=== PATIENT | male | born 1980 | race American Indian/Alaskan Native ===

== ENCOUNTER 2021-02-03 10:49 | Day surgery (SDC) | payer OTHER ==
[2021-02-03] MEDS ORDERED: fentaNYL 100 MCG/2 ML INJ IV ONE (12:11)
[2021-02-03] MEDS ORDERED: SODIUM CHLORIDE 0.9% 1000 ML 1,000 ML ONE (12:11)
[2021-02-03] MEDS ORDERED: ONDANSETRON 4 MG/2 ML INJ IV PRN (12:11)
[2021-02-03] MEDS ORDERED: HYDROmorphone 1 MG/1 ML INJ IV PRN (12:11)
[2021-02-03] MEDS ORDERED: PROTAMINE SULFATE 50 MG/5 ML INJ ONE (12:12)
[2021-02-03] MEDS ORDERED: SODIUM CHLORIDE 0.9% 250ML 250 ML ONE (12:12)
[2021-02-03] MEDS ORDERED: HEPARIN 10,000 UNITS/10 ML VIAL ONE (12:12)
[2021-02-03] MEDS ORDERED: THROMBIN (RECOMBINANT) 5,000 UNIT VIAL TP ONE (12:13)
[2021-02-03] MEDS ORDERED: SODIUM CHLORIDE 0.9% 1000 ML 1,000 ML IV SCH (12:15)
--- NOTE | 2021-02-03 12:22 | Anesthesia Day of Surgery ---
Anesthesia Day of Surgery - Day of Surgery Patient Examined: Yes Patient H&P Reviewed: Yes Patient is NPO: Yes
--- NOTE | 2021-02-03 12:23 | Anesthesia Consultation ---
Anesthesia Consult and Med Hx Date of service: 02/03/21 - Airway Anesthetic Teeth Evaluation: Chipped ROM Head & Neck: Adequate Mental/Hyoid Distance: Adequate Mallampati Class: Class II Intubation Access Assessment: Good - Pre-Operative Health Status ASA Pre-Surgery Classification: ASA3 Proposed Anesthetic Plan: General - Pulmonary Hx Smoking: Yes (FORMER SMOKER) Hx Pneumonia: Yes (2008) - Cardiovascular System Hx Hypertension: Yes - Central Nervous System Hx Psychiatric Problems: No - Endocrine Hx Renal Disease: Yes (From uncontrolled HTN) Hx End Stage Renal Disease: Yes (Last HD yesterday) - Hematic Hx Sickle Cell Disease: No - Other Systems Hx Alcohol Use: No Hx Substance Use: No Hx Cancer: No Hx Obesity: No
[2021-02-03 12:27] LABS: Hematocrit 39.1 % (35.5-45.6); Hemoglobin 12.3 gm/dl (11.8-15.2); Mean Corpuscular HGB Conc 31 % (32-34); Mean Corpuscular Volume 92 fl (84-94); Platelet Count 281 K/mm3 (140-440); Red Blood Count 4.23 M/mm3 (3.65-5.03); Red Cell Distribution Width 16.7 % (13.2-15.2)
[2021-02-03 12:37] LABS: Calcium 9.9 mg/dL (8.4-10.2)
[2021-02-03] MEDS ORDERED: MIDAZOLAM 2 MG/2 ML INJ IV NR (13:00)
[2021-02-03] MEDS ORDERED: LIDOCAINE MPF (2%) 20 MG/1 ML VIAL 5 ML ONE (13:03)
[2021-02-03] MEDS ORDERED: propofoL 200 MG/20 ML VIAL IV ONE (13:03)
[2021-02-03] MEDS ORDERED: fentaNYL 100 MCG/2 ML INJ ONE ×2 (13:03→14:40)
[2021-02-03] MEDS ORDERED: dexAMETHasone 20 MG/5 ML VIAL ONE (13:51)
[2021-02-03] MEDS ORDERED: ONDANSETRON 4 MG/2 ML INJ ONE ×2 (13:51→14:00)
[2021-02-03] MEDS ORDERED: SODIUM CHLORIDE 0.9% IRR 1,000 ML BOTTLE IR ONE (14:22)
[2021-02-03] MEDS ORDERED: HEPARIN IR ONE (14:22)
[2021-02-03] MEDS ORDERED: SODIUM CHLORIDE 0.9% IR ONE (14:22)
--- NOTE | 2021-02-03 15:38 | Post Operative Note ---
Date of procedure: 02/03/21 Pre-op diagnosis: ESRD Post-op diagnosis: same Procedure: Left Arm Brachiocephalic AV Fistula Creation Anesthesia: BRENDEN Surgeon: CASTRO BROOKS Estimated blood loss: other (25ml) Condition: stable Disposition: PACU
[2021-02-03] MEDS ORDERED: traMADol 50 MG TAB PO PRN (15:40)
--- NOTE | 2021-02-03 15:40 | Short Stay Summary ---
Short Stay Documentation Date of service: 02/03/21 - History H&P: dictated Past Medical History: ESRD, hypertension - Allergies and Medications Current Medications: Allergies Penicillins Allergy (Verified 01/25/21 14:43) Unknown Home Medications Medication Instructions Recorded Confirmed Last Taken Type Labetalol HCl [Labetalol 300mg TAB] 300 mg PO TID 01/18/21 02/03/21 02/03/21 07:00 History NIFEdipine [Adalat cc] 90 mg PO DAILY 01/18/21 02/03/21 02/03/21 07:00 History Sevelamer Carbonate [Renvela] 800 mg PO TIDWM 01/18/21 02/03/21 02/02/21 18:00 History cloNIDine [Catapres] 0.2 mg PO TID 01/18/21 02/03/21 02/03/21 07:00 History hydrALAZINE [Apresoline TAB] 100 mg PO TID 01/18/21 02/03/21 02/03/21 07:00 History Active Medications Hydromorphone HCl (Hydromorphone 1 Mg/1 Ml Inj) 0.25 mg IV Q10MIN PRN PRN Reason: Pain, Moderate (4-6) Hydromorphone HCl (Hydromorphone 1 Mg/1 Ml Inj) 0.5 mg IV Q10MIN PRN PRN Reason: Pain , Severe (7-10) Sodium Chloride (Nacl 0.9% 1000 Ml) 1,000 mls @ 42 mls/hr IV DIRECT MYLES Last Admin: 02/03/21 13:30 Dose: 42 mls/hr Documented by: Clindamycin HCl (Cleocin 900 Mg/50 Ml) 900 mg in 50 mls @ 100 mls/hr IV PREOP NR; Protocol Stop: 02/13/21 23:59 Midazolam HCl (Midazolam 2 Mg/2 Ml Inj) 2 mg IV PREOP NR Stop: 02/03/21 23:59 Ondansetron HCl (Ondansetron 4 Mg/2 Ml Inj) 4 mg IV ONCE PRN PRN Reason: Nausea And Vomiting - Physical exam General appearance: no acute distress Lungs: Normal air movement Heart: Regular rate Extremities: no ischemia - Hospital course Hospital course: the patient was taken to the operating room and had a left arm av fistula creation performed. please refer to the operative note concerning details of the procedure. the patient tolerated the procedure well and was discharged home in stable condition. - Disposition Condition at discharge: Stable Disposition: 01 HOME / SELF CARE / HOMELESS Short Stay Discharge Plan Follow up with: EAMON ESPARZA MD [Primary Care Provider] - 7 Days
[2021-02-03] MEDS: HYDROmorphone 1 MG/1 ML INJ IV PRN ×2 (16:26→17:11)
--- NOTE | 2021-02-03 16:28 | Operative Report ---
DATE OF SURGERY: 02/03/2021 STAFF SURGEON: Jj Charles MD PREOPERATIVE DIAGNOSIS: End-stage renal disease. POSTOPERATIVE DIAGNOSIS: End-stage renal disease. PROCEDURE PERFORMED: Left arm brachiocephalic AV fistula creation. COMPLICATIONS: None. ESTIMATED BLOOD LOSS: 25 mL. ANESTHESIA: General. INDICATIONS FOR PROCEDURE: This is a 40-year-old gentleman with end-stage renal disease, on hemodialysis via right IJ PermCath in need of upper extremity access. Vein mapping of the left upper extremity demonstrated adequate cephalic vein in the upper arm and therefore, the patient was scheduled to undergo fistula creation. The patient was explained the risks, benefits and alternative of procedure, expressed understanding and wished to proceed. DESCRIPTION OF PROCEDURE: After appropriate consent was obtained, the patient was brought back to the operating room and placed on the operating table in supine position with left arm extended. The patient was given appropriate medication for general anesthesia, had LMA placed without difficulty. The left arm was prepped and draped in the usual sterile fashion with ChloraPrep. Appropriate preoperative antibiotics were administered and appropriate timeout was performed, indicating correct patient, procedure, site of procedure. We then began the operation by making a transverse incision just below the antecubital fossa. This was carried through the subcutaneous tissue with combination of blunt dissection and electrocautery. The cephalic vein was identified and found to be suitable for venous outflow and so it was mobilized for appropriate distance both proximally and distally. The vein had several branches that were controlled with a silk suture and transected. The vein was controlled with a mosquito in the distal aspect of the incision, transected and then flushed with heparinized saline. A bulldog clamp was placed. The stump was ligated with a silk suture. We then turned our attention to the exposure of the brachial artery, which was exposed with further dissection in the medial aspect of the incision through the bicep aponeurosis using electrocautery. The brachial artery was identified and found to be suitable for arterial inflow and was mobilized for appropriate distance both proximally and distally. The patient was given 5000 units of unfractionated heparin. After appropriate timeout elapsed, vascular clamps were placed on the brachial artery both proximally and distally. A longitudinal arteriotomy was made with 11 blade, extended with Son scissors and an end-to-side anastomosis was performed with a running 6-0 Prolene suture. Once that was complete, flow was established through the fistula, which had a nice palpable thrill. After several beats, the distal clamp was removed. We looked to obtain hemostasis along our suture line, which was obtained with hemostatic agents. Once the patient had a palpable thrill and once we were satisfied with hemostasis, the wound was closed with deep subcutaneous layer with interrupted 3-0 PDS. Skin was approximated with running 4-0 Monocryl with Dermabond dressing. The patient tolerated the procedure well, emerged from the general anesthesia, had LMA removed and was sent to recovery in stable condition. All the sponge, instrument and needle counts were correct at completion of the operation. TID: [id number] RECEIPT: [id number] FELIPE/KAT
--- NOTE | 2021-02-03 17:25 | Post Anesthesia Evaluation ---
- Post Anesthesia Evaluation Patient Participated: Yes Airway Patent: Yes Stable Respiratory Function: Yes Nausea/Vomiting: No Temp > 96.8F: Yes Pain Manageable: Yes Adequeate Hydration: Yes Anesthesia Complications: No Block Receding Appropriately: Not Applicable Patient on Ventilator: No
[2021-02-03 19:21] VITALS: BP 158/98
== END 2021-02-03 18:00 | disposition home or self-care (01) ==
LOC: OR 10:49
PROVIDERS: ATTEND Surgery Vascular Surgery
DX: I12.0 Hypertensive chronic kidney disease with stage 5 chronic kidney disease or end stage renal disease (principal); N18.6 End stage renal disease; Z99.2 Dependence on renal dialysis; Z87.01 Personal history of pneumonia (recurrent); Z87.891 Personal history of nicotine dependence; Z79.899 Other long term (current) drug therapy; Z88.0 Allergy status to penicillin; Z98.890 Other specified postprocedural states
CPT/HCPCS: 36415; 36818; 80048; 85027; J1100; J1170; J1644; J2405; J2704; J2720; J3010; J7030; J7040; J7050; J7120